=== PATIENT | female | born 1950 | race American Indian/Alaskan Native ===

== ENCOUNTER 2017-10-31 13:23 | Outpatient (CLI) | payer MEDICARE ==
--- NOTE | 2017-10-31 20:55 | XRay Report ---
FINAL REPORT EXAM: XR KNEE BILAT 3V HISTORY: BILATERAL KNEE PAIN TECHNIQUE: AP, bilateral oblique, sunrise, and lateral standing views of the left knee PRIORS: None. FINDINGS: No acute fracture or dislocation is seen. There is severe joint space narrowing of the medial joint compartment with large bony eburnation off medial aspect. There is also bony re-formation of the medial femoral condyle and medial tibial plateau due to severe [id number] appearance. There is a varus alignment of the knee. Large spurs off the posterior patella is seen. The soft tissues are unremarkable with no evidence for suprapatellar joint effusion. The bony mineralization is osteopenic. IMPRESSION: No acute bony abnormality of the left knee. Severe [id number] osteoarthritis in the medial joint compartment with a varus alignment of the knee joint.
== END 2017-10-31 13:24 | disposition home or self-care (01) ==
LOC: SPVIMAG 13:23
PROVIDERS: ATTEND Orthopaedic Surgery
DX: M17.11 Unilateral primary osteoarthritis, right knee (principal); M25.562 Pain in left knee